=== PATIENT | male | born 1985 | race Caucasian/White ===

== ENCOUNTER 2016-12-23 22:42 | Emergency (ER) | payer SELFPAY ==
[~2016-12-23] VITALS: Ht 172.7 cm; Wt 70.0 kg
[2016-12-23 22:52] VITALS: BP 125/62; PULSE 74; RESP 20; TEMP 98.2; O2SAT 97
[2016-12-23 22:55] VITALS: O2SAT 97
--- NOTE | 2016-12-23 22:55 | PD ---
HPI Chief Complaint: allergic reaction Time Seen by Provider: 22:48 Travel History International Travel<30 days: No Contact w/Intl Traveler<30days: No Traveled to known affect area: No History of Present Illness HPI 31-year-old male patient presents to the ER today because of an allergic reaction, he apparently had been making dinner and had eaten talapia which he has had in the past. He started getting lip swelling, difficulty breathing, throat closing and when EMS arrived, states that he looked like he was going into angioedema. They had given him epinephrine, Benadryl, Solu-Medrol on scene. He has significant relief of swelling and is appearing much improved. He states that he is no longer short of breath. He denies any previous issues with allergic reactions and has had the same ingredients in the past. He denies any new medications. Modifying Factors: None Associated Signs & Symptoms: Allergic reaction Risk Factors: None PFSH Social History Tobacco Use: Yes Allergies-Medications (Allergen,Severity, Reaction): Coded Allergies: No Known Allergies (Unverified , 12/23/16) Reported Meds & Prescriptions Reported Meds & Active Scripts Active No Active Prescriptions or Reported Medications Review of Systems Except as stated in HPI: all other systems reviewed are Neg Physical Exam Narrative GENERAL: Well-developed young white male patient currently in mild distress. Awake and oriented 3. SKIN: Focused skin assessment warm/dry. HEAD: Atraumatic. Normocephalic. EYES: Pupils equal and round. No scleral icterus. No injection or drainage. ENT: No nasal bleeding or discharge. Mucous membranes pink and moist. Mild uvular edema. There is very mild lower lip edema. NECK: Trachea midline. No JVD. CARDIOVASCULAR: Regular rate and rhythm. No murmur appreciated. RESPIRATORY: No accessory muscle use. Clear to auscultation. Breath sounds equal bilaterally. GASTROINTESTINAL: Abdomen soft, non-tender, nondistended. Hepatic and splenic margins not palpable. MUSCULOSKELETAL: No obvious deformities. No clubbing. No cyanosis. No edema. NEUROLOGICAL: Awake and alert. No obvious cranial nerve deficits. Motor grossly within normal limits. Normal speech. PSYCHIATRIC: Appropriate mood and affect; insight and judgment normal. Data Data Last Documented VS Vital Signs Date Time Temp Pulse Resp B/P (MAP) Pulse Ox O2 Delivery O2 Flow Rate FiO2 12/24/16 02:37 98.0 65 14 107/60 (76) 98 Room Air Orders Orders Ecg Monitoring (12/23/16 22:49) Iv Access Insert/Monitor (12/23/16 22:49) Oximetry (12/23/16 22:49) Famotidine Inj (Pepcid Inj) (12/23/16 23:00) Sodium Chloride 0.9% Flush (Ns Flush) (12/23/16 23:00) MDM Medical Decision Making Medical Screen Exam Complete: Yes Emergency Medical Condition: Yes Medical Record Reviewed: Yes Differential Diagnosis Angioedema/allergic reaction Narrative Course Patient was given additional Zantac on top of the Benadryl, epinephrine, and Solu-Medrol already given by EMS. He was observed for 4 hours in the ER. On reevaluation at 3 PM, patient's symptoms has completely resolved. Vital signs are stable. At this point, my plan would be to release him with further treatment of allergic reaction and have him follow-up with primary care doctor. He should carry EpiPen with him at all times. It is unclear what he may have been allergic to but he may have to reevaluate what he has been taking in for the last day. Return for any worsening in symptoms. The plan has been discussed with him and he states understanding. Diagnosis Primary Impression: Allergic reaction Med/Other Pt SpecificInfo: Prescription(s) given Scripts Methylprednisolone Dosepak (Medrol Dosepak) 4 Mg Dspk 4 MG PO DIRECTED, #1 DSPK 0 Refills Per Pharmacist direction Prov: Lena Agarwal MD 12/24/16 Diphenhydramine HCl (Benadryl Allergy) 25 Mg Cap 25 MG PO QID Y for ALLERGIC REACTION, #21 Prov: Lena Agarwal MD 12/24/16 Epinephrine Inj (Epipen 2-Dashawn Inj) 0.3 Mg/0.3 Ml Pfpen 0.3 MG SQ ONCE Y for ALLERGIC REACTION, #1 PACK 0 Refills Prov: Lena Agarwal MD 12/24/16 Disposition: 01 DISCHARGE HOME Condition: Stable Lena Agarwal MD Dec 23, 2016 22:55
[2016-12-23] MEDS ORDERED: SODIUM CHLORIDE 0.9% FLUSH 10 ML FLUSH IV FLUSH PRN (23:00)
[2016-12-23] MEDS ORDERED: FAMOTIDINE 20 MG/2 ML VIAL IV PUSH ONE (23:00)
[2016-12-24 01:01] VITALS: BP 102/59; PULSE 68; RESP 16; O2SAT 98
[2016-12-24 02:37] VITALS: BP 107/60; PULSE 65; RESP 14; TEMP 98; O2SAT 98
[2016-12-24] MEDS ORDERED: MEDR4PAK PO (02:52)
[2016-12-24] MEDS ORDERED: EPIP0.3I SQ (02:52)
[2016-12-24] MEDS ORDERED: BENA25CA4 PO (02:52)
== END 2016-12-24 03:12 | disposition home or self-care (01) ==
LOC: NEPC 22:42
DX: T78.40XA Allergy, unspecified, initial encounter (principal)
CPT/HCPCS: 96374